=== PATIENT | female | born 1945 ===

== ENCOUNTER 2023-01-07 21:26 | Outpatient (CLI) | payer MEDICARE ==
--- NOTE | 2023-01-08 08:57 | Ultrasound Report ---
PROCEDURE: Ext Limited Non Vascular INDICATIONS: RIGHT KNEE PAIN TECHNIQUE: Real-time scanning was performed of the knee, with image documentation. COMPARISON: None. FINDINGS/IMPRESSION: No Beasley's cyst. A small pocket of fluid is seen in the lateral suprapatellar re gion (as indicated by the anatomic structure on the ultrasound images), measuring 2.9 x 0.7 cm. If there is high concern for further derangement, consider MRI evaluation. Reviewed by: Pierre Rocha MD on 01/08/2023 8:56 AM PDT Approved by: Pierre Rocha MD on 01/08/2023 8:56 AM PDT Station ID: [id number]
== END 2023-01-07 21:27 | disposition home or self-care (01) ==
LOC: DI 21:26
PROVIDERS: ATTEND Internal Medicine
DX: M25.561 Pain in right knee (principal)